=== PATIENT | female | born 2005 | race Hispanic/Latino ===

== ENCOUNTER 2024-06-20 03:01 | Emergency (ER) | payer OTHER ==
[2024-06-20] MEDS ORDERED: CEFTRIAXONE 1000 MG/VIAL ONE (03:19)
[2024-06-20] MEDS ORDERED: LIDOCAINE 1% MPF 2 ML AMPULE ONE (03:19)
[2024-06-20] MEDS ORDERED: ACETAMINOPHEN 500 MG TAB ONE (03:24)
[2024-06-20] MEDS ORDERED: ONDANSETRON 4 MG (ODT) TAB ONE (03:24)
[2024-06-20] MEDS ORDERED: KETOROLAC 30 MG/ML INJ ONE (03:24)
[2024-06-20 04:09] LABS: Specific Gravity 1.022 (1.005-1.030)
--- NOTE | 2024-06-20 04:21 | EDPHYS ---
Physician Documentation [facility] Name: Loida Wilks Age: 19 yrs Sex: Female : 2005 Arrival Date: 06/20/2024 Time: 03:01 Bed 5 Private MD: ED Physician Isaías Tineo HPI: 06/20 04:03 This 19 yrs old Female presents to ER via Ambulatory with complaints of Sore sp4 Throat, Headache, Nausea. 21:05 19-year-old female presents with complaint of sore throat nausea and headache. . 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 - Infectious Disease History:: Denies. - Social history:: Smoking status: Patient denies any tobacco usage or history of. Patient/guardian denies using alcohol, street drugs. - Family history:: not pertinent. ROS: 21:05 Constitutional: Negative for fever, chills, and weight loss, positive sore throat, sp4 positive headache, positive nausea 21:05 All other systems are negative, Exam: 21:05 Constitutional: This is a well developed, well nourished patient who is awake, alert, sp4 and in no acute distress. Head/Face: Normocephalic, atraumatic. Eyes: Pupils equal round and reactive to light, extra-ocular motions intact. Lids and lashes normal. Conjunctiva and sclera are not injected. Cornea within normal limits. Periorbital areas with no swelling, redness, or edema. ENT: Nares patent. No nasal discharge, no septal abnormalities noted. Tympanic membranes are normal and external auditory canals are clear. Oropharynx with no redness, swelling, or masses, exudates, or evidence of obstruction, uvula midline. Mucous membranes moist. Neck: Trachea midline, no thyromegaly or masses palpated, and no cervical lymphadenopathy. Supple, full range of motion without nuchal rigidity, or vertebral point tenderness. Chest/axilla: Normal chest wall appearance and motion. Nontender with no deformity. No lesions are appreciated. Cardiovascular: Regular rate and rhythm with a normal S1 and S2. No gallops, murmurs, or rubs. Normal PMI, no JVD. No pulse deficits. Respiratory: Lungs have equal breath sounds bilaterally, clear to auscultation and percussion. No rales, rhonchi or wheezes noted. No increased work of breathing, no retractions or nasal flaring. Abdomen/GI: Soft, with normal bowel sounds. No distension or tympany. No guarding or rebound. No evidence of tenderness throughout. Back: No spinal tenderness. No costovertebral tenderness. Skin: Warm, dry with normal turgor. Normal color with no rashes, no lesions, and no evidence of cellulitis. MS/ Extremity: Pulses equal, no cyanosis. Neurovascular intact. Full, normal range of motion. Neuro: Awake and alert, GCS 15, oriented to person, place, time, and situation. Cranial nerves II-XII grossly intact. Motor strength 5/5 in all extremities. Sensory grossly intact. Psych: Awake, alert, with orientation to person, place and time. Behavior, mood, and affect are within normal limits Vital Signs: 03:18 BP 142 / 98; Pulse 85; Resp 17 S; Temp 98.1(O); Pulse Ox 98% on R/A; Weight 86.18 kg lg3 (R); Height 5 ft. 6 in. (R); 04:27 BP 121 / 74; Pulse 78; Resp 17; Temp 98.2; Pulse Ox 100% ; Pain 2/10; bm8 03:18 Body Mass Index 30.67 (86.18 kg, 167.64 cm) lg3 04:27 Pain Scale: Adult bm8 [place] Coma Score: 03:35 Eye Response: spontaneous(4). Motor Response: obeys commands(6). Verbal Response: bm8 oriented(5). Total: 15. 04:27 Eye Response: spontaneous(4). Motor Response: obeys commands(6). Verbal Response: bm8 oriented(5). Total: 15. 21:05 Eye Response: spontaneous(4). Motor Response: obeys commands(6). Verbal Response: sp4 oriented(5). Total: 15. MDM: 04:03 Patient medically screened. sp4 21:06 Differential diagnosis: bronchitis, echovirus infection, gingivostomatitis, influenza, sp4 elvin's angina. Data reviewed: vital signs, nurses notes, old medical records. ED course: Patient has classic strep throat on exam. Will prescribe course of cephalexin. 06/20 03:19 Order name: Test, Urine; Complete Time: 04:20 sp4 Administered Medications: 03:35 Drug: Ketorolac IM 60 mg IM once Route: IM; Site: left gluteus; bm8 04:28 Follow up: Response: No adverse reaction bm8 03:35 Drug: Rocephin (cefTRIAXone) IM 1 grams IM once Route: IM; Site: right gluteus; bm8 04:28 Follow up: Response: No adverse reaction bm8 03:35 Drug: Ondansetron PO 4 mg PO once Route: PO; bm8 04:28 Follow up: Response: No adverse reaction bm8 03:35 Drug: Acetaminophen PO 1000 mg PO once Route: PO; bm8 04:28 Follow up: Response: No adverse reaction bm8 Disposition Summary: 06/20/24 04:21 Discharge Ordered Notes: Location: Home sp4 Problem: new sp4 Symptoms: have improved sp4 Condition: Stable sp4 Diagnosis - Streptococcal tonsillitis sp4 Followup: sp4 - With: Private Physician - When: 7 - 10 days - Reason: Recheck today's complaints Discharge Instructions: - Discharge Summary Sheet sp4 - Tonsillitis, [id number] sp4 Forms: - Patient Portal Instructions sp4 - Family Work Release bm8 Prescriptions: - Cephalexin 500 mg Oral Capsule - take 1 capsule ORAL route every 12 hours for 10 days; 20 capsule; Refills: 0, sp4 Product Selection Permitted - Ibuprofen 800 mg Oral Tablet - take 1 tablet ORAL route every 8 hours As needed take with food; 30 tablet; sp4 Refills: 0, Product Selection Permitted - ondansetron 8 mg Oral Tablet,disintegrating - take 1 tablet ORAL route every 8 hours PRN nausea; 30 tablet; Refills: 0, sp4 Product Selection Permitted Signatures: Dispatcher [employer] Tootie Wallis RN RN lg3 Isaías Tineo MD MD sp4 Aram Mcnair RN RN bm8
--- NOTE | 2024-06-20 04:21 | ER ---
Nurse's Notes [facility] Name: Loida Wilks Age: 19 yrs Sex: Female : 2005 Arrival Date: 06/20/2024 Time: 03:01 Bed 5 Private MD: Diagnosis: Streptococcal tonsillitis Presentation: 06/20 03:18 Chief complaint: Patient states: i think i have strep. new onset headache and lg3 intermittent nausea. Coronavirus screen: Client denies travel out of the [place] in the last 14 days. At this time, the client does not indicate any symptoms associated with coronavirus-19. Ebola Screen: No symptoms or risks identified at this time. Initial Sepsis Screen: Does the patient meet any 2 criteria? No. Patient's initial sepsis screen is negative. Does the patient have a suspected source of infection? No. Patient's initial sepsis screen is negative. Risk Assessment: Do you want to hurt yourself or someone else? Patient reports no desire to harm self or others. Onset of symptoms was June 17, 2024. 03:18 Method Of Arrival: Ambulatory lg3 03:18 Acuity: ENOC 4 lg3 Triage Assessment: 03:19 General: Appears in no apparent distress. comfortable, Behavior is calm, cooperative. lg3 Pain: Complains of pain in throat. EENT: Throat is reddened has enlarged tonsils bilaterally. Neuro: No deficits noted. Garcia Agitation-Sedation Scale (RASS): 0 - Alert and Calm Level of Consciousness is awake, alert, obeys commands, Oriented to person, place, time, situation. Cardiovascular: No deficits noted. Denies chest pain, shortness of breath, Capillary refill < 3 seconds Clubbing of nail beds is absent JVD is absent Patient's skin is warm and dry. Respiratory: No deficits noted. Airway is patent Respiratory effort is even, unlabored, Respiratory pattern is regular, symmetrical. GI: No deficits noted. No signs and/or symptoms were reported involving the gastrointestinal system. : No deficits noted. No signs and/or symptoms were reported regarding the genitourinary system. Derm: No deficits noted. No signs and/or symptoms reported regarding the dermatologic system. Skin is intact, is healthy with good turgor, Skin is dry, Skin is normal, Skin temperature is warm. Musculoskeletal: No deficits noted. No signs and/or symptoms reported regarding the musculoskeletal system. Circulation, motion, and sensation intact. Range of motion: intact in all extremities. 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 - Infectious Disease History:: Denies. - Social history:: Smoking status: Patient denies any tobacco usage or history of. Patient/guardian denies using alcohol, street drugs. - Family history:: not pertinent. Screenin:35 [facility] ED Fall Risk Assessment (Adult) History of falling in the last 3 months, bm8 including since admission No falls in past 3 months (0 pts) Confusion or Disorientation No (0 pts) Intoxicated or Sedated No (0 pts) Impaired Gait No (0 pts) Mobility Assist Device Used No (0 pt) Altered Elimination No (0 pt) Score/Fall Risk Level 0 - 2 = Low Risk Oriented to surroundings, Maintained a safe environment, Educated pt \T\ family on fall prevention, incl call for assistance when getting out of bed, Assessed \T\ reinforced patient's understanding of fall precautions, Hourly rounding (assess needs \T\ fall precautionary measures) done, Used ambulatory aids as needed (educated on \T\ assisted with), Used gait belt as appropriate. Abuse screen: Denies threats or abuse. Nutritional screening: No deficits noted. Tuberculosis screening: No symptoms or risk factors identified. Assessment: 03:35 General: Appears in no apparent distress. comfortable, Behavior is calm, cooperative, bm8 appropriate for age. Pain: Complains of pain in throat and head. Neuro: No deficits noted. Level of Consciousness is awake, alert, obeys commands, Oriented to person, place, time, situation, Appropriate for age Reports headache. Cardiovascular: Denies chest pain, Capillary refill < 3 seconds in bilateral fingers Patient's skin is warm and dry. Respiratory: No deficits noted. Airway is patent Respiratory effort is even, unlabored, Respiratory pattern is regular, symmetrical, Breath sounds are clear bilaterally. GI: No signs and/or symptoms were reported involving the gastrointestinal system. : No signs and/or symptoms were reported regarding the genitourinary system. EENT: Throat is reddened has patchy exudate has enlarged tonsils bilaterally with gag reflex present, Reports difficulty swallowing. Derm: No signs and/or symptoms reported regarding the dermatologic system. Musculoskeletal: No signs and/or symptoms reported regarding the musculoskeletal system. 04:27 Reassessment: Patient appears in no apparent distress at this time. Patient and/or bm8 family updated on plan of care and expected duration. Pain level reassessed. Patient is alert, oriented x 3, equal unlabored respirations, skin warm/dry/pink. Patient states feeling better. Vital Signs: 03:18 BP 142 / 98; Pulse 85; Resp 17 S; Temp 98.1(O); Pulse Ox 98% on R/A; Weight 86.18 kg lg3 (R); Height 5 ft. 6 in. (R); 04:27 BP 121 / 74; Pulse 78; Resp 17; Temp 98.2; Pulse Ox 100% ; Pain 2/10; bm8 03:18 Body Mass Index 30.67 (86.18 kg, 167.64 cm) lg3 04:27 Pain Scale: Adult bm8 [place] Coma Score: 03:35 Eye Response: spontaneous(4). Motor Response: obeys commands(6). Verbal Response: bm8 oriented(5). Total: 15. 04:27 Eye Response: spontaneous(4). Motor Response: obeys commands(6). Verbal Response: bm8 oriented(5). Total: 15. 21:05 Eye Response: spontaneous(4). Motor Response: obeys commands(6). Verbal Response: sp4 oriented(5). Total: 15. ED Course: 03:08 Patient arrived in ED. jj6 03:18 Isaías Tineo MD is Attending Physician. sp4 03:19 Triage completed. lg3 03:19 Arm band placed on right wrist. lg3 03:34 Aram Mcnair, ENEIDA is Primary Nurse. bm8 03:35 Patient has correct armband on for positive identification. Bed in low position. Call bm8 light in reach. Side rails up X 1. Adult w/ patient. Client placed on continuous cardiac and pulse oximetry monitoring. NIBP monitoring applied. Pulse ox on. NIBP on. Door closed. Noise minimized. Pillow given. Verbal reassurance given. 03:35 No provider procedures requiring assistance completed. Patient maintains SpO2 bm8 saturation greater than 95% on room air. 04:27 Provided Education on: post er care. bm8 04:27 Patient did not have IV access during this emergency room visit. bm8 Administered Medications: 03:35 Drug: Ketorolac IM 60 mg IM once Route: IM; Site: left gluteus; bm8 04:28 Follow up: Response: No adverse reaction bm8 03:35 Drug: Rocephin (cefTRIAXone) IM 1 grams IM once Route: IM; Site: right gluteus; bm8 04:28 Follow up: Response: No adverse reaction bm8 03:35 Drug: Ondansetron PO 4 mg PO once Route: PO; bm8 04:28 Follow up: Response: No adverse reaction bm8 03:35 Drug: Acetaminophen PO 1000 mg PO once Route: PO; bm8 04:28 Follow up: Response: No adverse reaction bm8 Medication: 03:35 VIS not applicable for this client. bm8 Outcome: 04:21 Discharge ordered by . shelly 04:27 Discharged to home ambulatory, with family, bm8 04:27 Condition: stable 04:27 Discharge instructions given to patient, family, Instructed on discharge instructions, follow up and referral plans. no drinking with medication, no driving heavy equipment, medication usage, safety practices, Demonstrated understanding of instructions, follow-up care, medications, Prescriptions given X 2, 04:32 Patient left the ED. bm8 Signatures: Tootie Adler RN RN lg3 Cherelle Henry jj6 Isaías Tineo MD MD sp4 Aram Mcnair RN RN bm8
[2024-06-20 05:09] VITALS: BP 121/74; TEMP 98.2; O2SAT 100
== END 2024-06-20 04:32 | disposition home or self-care (01) ==
LOC: ER 03:01
DX: J03.00 Acute streptococcal tonsillitis, unspecified (principal)
CPT/HCPCS: 81025; Q0162; J0696; 96372; 99284

== ENCOUNTER 2024-07-14 00:59 | Emergency (ER) | payer OTHER ==
--- NOTE | 2024-07-14 01:57 | ER ---
Nurse's Notes [facility] Name: Loida Wilks Age: 19 yrs Sex: Female : 2005 Arrival Date: 07/14/2024 Time: 00:59 Bed DX3 Private MD: Diagnosis: Acute tonsillitis, unspecified Presentation: 07/14 01:13 Chief complaint: Patient states: I WAS HERE BEFORE AND GOT DIAGNOSED WITH STREP, I GOT ha1 BETTER WITH THE ANTIBIOTICS THAT I WAS PRESCRIBED, BUT I FEEL THAT THE STREP NEVER WENT AWAY. SORE THROAT. 01:13 Coronavirus screen: Vaccine status: Patient reports being unvaccinated. Ebola Screen: ha1 No symptoms or risks identified at this time. Initial Sepsis Screen: Does the patient meet any 2 criteria? No. Patient's initial sepsis screen is negative. Initial Sepsis Screen: Does the patient have a suspected source of infection? No. Patient's initial sepsis screen is negative. Risk Assessment: Do you want to hurt yourself or someone else? Patient reports no desire to harm self or others. Onset of symptoms was July 14, 2024. 01:13 Method Of Arrival: Ambulatory ha1 01:13 Acuity: ENOC 4 ha1 Triage Assessment: 01:13 General: Appears comfortable, Behavior is calm, cooperative. Pain: Complains of pain in ha1 SORE THROAT Pain does not radiate. Pain currently is 5 out of 10 on a pain scale. Quality of pain is described as aching. 01:13 EENT: Throat is reddened has enlarged tonsils. Neuro: Level of Consciousness is awake, ha1 alert, obeys commands, Oriented to person, place, time, situation. Cardiovascular: Capillary refill < 3 seconds Patient's skin is warm and dry. Respiratory: Airway is patent Respiratory effort is even, unlabored, Respiratory pattern is regular, symmetrical. GI: Abdomen is round non-distended. 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 - Infectious Disease History:: Denies. - Social history:: Smoking status: Patient denies any tobacco usage or history of. Screenin:13 [facility] ED Fall Risk Assessment (Adult) History of falling in the last 3 months, ha1 including since admission No falls in past 3 months (0 pts) Confusion or Disorientation No (0 pts) Intoxicated or Sedated No (0 pts) Impaired Gait No (0 pts) Mobility Assist Device Used No (0 pt) Altered Elimination No (0 pt) Score/Fall Risk Level 0 - 2 = Low Risk Oriented to surroundings, Maintained a safe environment, Educated pt \T\ family on fall prevention, incl call for assistance when getting out of bed, Hourly rounding (assess needs \T\ fall precautionary measures) done. Abuse screen: Denies threats or abuse. Denies injuries from another. Nutritional screening: No deficits noted. Tuberculosis screening: No symptoms or risk factors identified. Assessment: 01:13 Respiratory: Airway is patent Respiratory effort is even, unlabored, Respiratory ha1 pattern is regular, symmetrical, Breath sounds are clear bilaterally. 02:44 Reassessment: Patient and/or family updated on plan of care and expected duration. Pain ha1 level reassessed. Patient is alert, oriented x 3, equal unlabored respirations, skin warm/dry/pink. Patient denies pain at this time. Patient states feeling better. Patient states symptoms have improved. Vital Signs: 01:13 BP 131 / 86; Pulse 86; Resp 17 S; Temp 98.2(T); Pulse Ox 99% on R/A; Weight 89.81 kg; ha1 Height 5 ft. 6 in. ; Pain 6/10; 02:30 BP 128 / 85; Pulse 82; Resp 17 S; Pulse Ox 99% on R/A; ha1 01:13 Body Mass Index 31.96 (89.81 kg, 167.64 cm) ha1 01:13 Pain Scale: Adult ha1 ED Course: 01:06 Patient arrived in ED. jj6 01:13 Denzel Lopez PA is PHCP. cp 01:13 Denzel Leblanc MD is Attending Physician. cp 01:13 Arm band placed on right wrist. ha1 01:13 Patient has correct armband on for positive identification. Bed in low position. Call ha1 light in reach. Side rails up X 1. 01:24 Shawanda Sheldon, ENEIDA is Primary Nurse. ha1 01:30 Triage completed. ha1 02:38 No provider procedures requiring assistance completed. Patient did not have IV access ha1 during this emergency room visit. 02:44 Provided Education on: MEDICATION ADMINISTRATION . ha1 Administered Medications: 02:25 Drug: Viscous Lidocaine Mucous Membrane Liquid (4 %) 5 ml Mucous Membrane once Route: ha1 Mucous Membrane; 02:38 Follow up: Response: No adverse reaction ha1 02:25 Drug: Clindamycin PO 300 mg PO once Route: PO; ha1 02:38 Follow up: Response: No adverse reaction ha1 Medication: 02:38 VIS not applicable for this client. ha1 Outcome: 01:56 Discharge ordered by . lokesh 02:38 Discharged to home ambulatory, ha1 02:38 Condition: stable 02:38 Discharge instructions given to patient, Instructed on discharge instructions, follow up and referral plans. medication usage, Demonstrated understanding of instructions, follow-up care, medications, Prescriptions given X 2, 02:45 Patient left the ED. ha1 Signatures: Denzel Lopez PA PA cp Jeffries, Jennifer jj6 Shawanda Sheldon RN RN ha1
--- NOTE | 2024-07-14 01:57 | EDPHYS ---
Physician Documentation [facility] Name: Loida Wilks Age: 19 yrs Sex: Female : 2005 Arrival Date: 07/14/2024 Time: 00:59 Bed DX3 Private MD: ED Physician Denzel Leblanc HPI: 07/14 01:55 This 19 yrs old Female presents to ER via Ambulatory with complaints of Sore cp Throat. 01:55 The patient presents with sore throat. The patient describes throat pain as constant. cp Onset: The symptoms/episode began/occurred yesterday. 01:55 Severity of symptoms: in the emergency department the symptoms are unchanged, despite cp home interventions. 01:55 Associated signs and symptoms: Pertinent negatives cough, diarrhea, dysphagia, earache, cp fever, flu-like symptoms, headache. 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 - Infectious Disease History:: Denies. - Social history:: Smoking status: Patient denies any tobacco usage or history of. ROS: 02:00 Eyes: Negative for injury, pain, redness, and discharge, cp 02:00 Constitutional: Negative for body aches, chills, fever, poor PO intake, 02:00 ENT: Positive for sore throat, Negative for drainage from ear(s), ear pain, difficulty swallowing, difficulty handling secretions, 02:00 Respiratory: Negative for cough, shortness of breath, wheezing, 02:00 Abdomen/GI: Negative for abdominal pain, vomiting, diarrhea, constipation, 02:00 Skin: Negative for cellulitis, rash, 02:00 Neuro: Negative for altered mental status, numbness, weakness, 02:00 All other systems are negative, Exam: 02:05 Constitutional: The patient appears in no acute distress, alert, awake, non-toxic, well cp developed, well nourished, 02:05 Head/Face: Normocephalic, atraumatic. cp 02:05 Eyes: Periorbital structures: appear normal, Conjunctiva: normal, no exudate, no injection, Sclera: no appreciated abnormality, Lids and lashes: appear normal, bilaterally, 02:05 ENT: External ear(s): are unremarkable, Ear canal(s): are normal, clear, TM's: bulging, is not appreciated, bilaterally, dullness, bilaterally, erythema, is not appreciated, bilaterally, Nose: is normal, Mouth: Lips: moist, Oral mucosa: moist, Posterior pharynx: Airway: no evidence of obstruction, patent, Tonsils: bilaterally enlarged, with erythema, no exudate, Uvula: midline, erythema, that is mild, Voice: is normal, 02:05 Neck: ROM/movement: is normal, is supple, no meningismus, no nuchal rigidity, 02:05 Chest/axilla: Inspection: normal, 02:05 Cardiovascular: Rate: normal, JVD: is not appreciated, 02:05 Respiratory: the patient does not display signs of respiratory distress, Respirations: normal, no use of accessory muscles, no retractions, labored breathing, is not present, Breath sounds: are clear throughout, no decreased breath sounds, no stridor, no wheezing, 02:05 Abdomen/GI: Exam negative for discomfort, distension, guarding, Inspection: abdomen appears normal, 02:05 Skin: no rash present. Vital Signs: 01:13 BP 131 / 86; Pulse 86; Resp 17 S; Temp 98.2(T); Pulse Ox 99% on R/A; Weight 89.81 kg; ha1 Height 5 ft. 6 in. ; Pain 6/10; 02:30 BP 128 / 85; Pulse 82; Resp 17 S; Pulse Ox 99% on R/A; ha1 01:13 Body Mass Index 31.96 (89.81 kg, 167.64 cm) ha1 01:13 Pain Scale: Adult ha1 MDM: 01:14 Medical Screening Exam initiated raisa 02:55 Data reviewed: vital signs, nurses notes, lab test result(s), and as a result, I will cp discharge patient. 02:55 Differential diagnosis: group A strep tonsillitis, mononucleosis, peritonsillar abscess cp tonsillitis, uvulitis. I considered the following discharge prescriptions or medication management in the emergency department Medications were administered in the Emergency Department. See MAR. Counseling: I had a detailed discussion with the patient and/or guardian regarding the historical points, exam findings, and any diagnostic results supporting the discharge/admit diagnosis, lab results, to return to the emergency department if symptoms worsen or persist or if there are any questions or concerns that arise at home. 07/14 01:46 Order name: Group A Streptococcus Rapid Sc [facility] 07/14 01:46 Order name: Throat Culture [facility] 07/14 02:17 Order name: Group A Streptococcus Rapid Sc [facility] 07/14 02:17 Order name: Throat Culture [facility] Administered Medications: 02:25 Drug: Viscous Lidocaine Mucous Membrane Liquid (4 %) 5 ml Mucous Membrane once Route: ha1 Mucous Membrane; 02:38 Follow up: Response: No adverse reaction ha1 02:25 Drug: Clindamycin PO 300 mg PO once Route: PO; ha1 02:38 Follow up: Response: No adverse reaction ha1 Disposition Summary: 07/14/24 01:56 Discharge Ordered Notes: Location: Home cp Problem: new cp Symptoms: have improved cp Condition: Stable cp Diagnosis - Acute tonsillitis, unspecified cp Followup: cp - With: Private Physician - When: 2 - 3 days - Reason: Worsening of condition Discharge Instructions: - Discharge Summary Sheet cp - Tonsillitis cp Forms: - Medication Reconciliation Form cp - Antibiotic Education cp - Prescription Opioid Use cp - Patient Portal Instructions cp - Leadership Thank You Letter cp Prescriptions: - Lidocaine Viscous - take 5 milliliter ORAL route every 4-6 hours As needed; 120 milliliter; cp Refills: 0, Product Selection Permitted - Clindamycin HCl 300 mg Oral Capsule - take 1 capsule ORAL route every 6 hours for 10 days; 40 capsule; Refills: 0, cp Product Selection Permitted - Ibuprofen 800 mg Oral Tablet - take 1 tablet ORAL route every 8 hours As needed take with food; 30 tablet; cp Refills: 0, Product Selection Permitted Signatures: Dispatcher [employer] [facility] Denzel Leblanc MD MD cha Page, Corey, PA PA cp Shawanda Sheldon RN RN ha1 Corrections: (The following items were deleted from the chart) 02:17 02:10 Group A Streptococcus Rapid Sc+[id number].LAB.BRZ ordered. [facility] 19:56 07/13 02:00 Constitutional: Negative for body aches, chills, fever, poor PO intake, cp cp 07/14 19:56 07/13 02:00 Eyes: Negative for injury, pain, redness, and discharge, cp cp 11/07/13 02:00 ENT: Positive for sore throat, Negative for drainage from ear(s), ear pain, cp difficulty swallowing, difficulty handling secretions, cp 07/14 02:00 Respiratory: Negative for cough, shortness of breath, wheezing, cp cp 07/14 02:00 Abdomen/GI: Negative for abdominal pain, vomiting, diarrhea, constipation, cp cp 07/14 02:00 Skin: Negative for cellulitis, rash, cp cp 07/14 02:00 Neuro: Negative for altered mental status, numbness, weakness, cp cp 07/14 02:00 All other systems are negative, cp cp
[2024-07-14] MEDS ORDERED: LIDOCAINE VISCOUS 2% 10ML ORAL SOLN ONE (02:32)
[2024-07-14 03:02] VITALS: BP 128/85; O2SAT 99
== END 2024-07-14 02:45 | disposition home or self-care (01) ==
LOC: ER 00:59
DX: J03.90 Acute tonsillitis, unspecified (principal)
CPT/HCPCS: 87070; 87081; 99283

== ENCOUNTER 2024-11-11 07:03 | Emergency (ER) | payer OTHER ==
[2024-11-11] MEDS ORDERED: FAMOTIDINE 20 MG/2 ML VIAL IV ONE (07:22)
[2024-11-11] MEDS ORDERED: ONDANSETRON 4 MG/2 ML VIAL ONE ×2 (07:22→08:30)
[2024-11-11] MEDS ORDERED: NA CHLORIDE 0.9% 1,000 ML ONE ×2 (07:23→10:14)
[2024-11-11 07:41] LABS: Absolute Eosinophils 0.1 K/uL (0-0.5); Absolute Lymphocytes (CBC) 1.4 K/uL (0.7-4.9); Absolute Monocytes 1.1 K/uL (0.1-1.3); Basophils % 0.2 % (0-1.3); Eosinophils % 0.7 % (0-4.4); Hematocrit 41.2 % (36.0-45.0); Hemoglobin 13.5 g/dL (12.0-15.0); Lymphocytes % 7.9 % (15.3-44.8); MCHC 32.8 g/dL (32.0-36.0); MCV 85.5 fL (80-100); MPV 7.3 fL (7.6-11.3); Monocytes % 6.1 % (3.3-12.3); Neutrophils % 85.1 % (41.7-73.7); Platelets 448 thou/uL (152-406); RBC Red Blood Cell Count 4.82 M/uL (3.86-4.86); Red Cell Distribution Width 13.7 % (12.1-15.2)
[2024-11-11 07:57] LABS: Albumin 3.7 g/dL (3.4-5.0); Albumin/Globulin Ratio 0.7 (1.1-1.8); Anion Gap 9.8 mEq/L (5.0-15.0); Bilirubin Total 0.4 mg/dL (0.2-1.0); Globulin 5.5 g/dL (2.3-3.5); Potassium 3.8 mEq/L (3.5-5.1); Protein, Total 9.2 g/dL (6.4-8.2)
[2024-11-11 08:38] LABS: Blood Morphology Comment NOTED (NOT SEEN); Differential Total Cells Count 100; Eosinophils 1 % (0-3); Lymphocytes 12 % (15-42); Monocytes 2 % (0-10); Platelet Estimate ADEQ; Segmented Neutrophils 85 % (40-80)
[2024-11-11 08:39] LABS: Stomatocytes 1+
[2024-11-11] MEDS ORDERED: PROMETHAZINE INJ 25 MG/ML AMP ONE ×2 (09:06→10:15)
--- NOTE | 2024-11-11 11:18 | RAD REPORT ---
EXAMINATION: CT ABDOMEN AND PELVIS WITH CONTRAST CLINICAL INDICATION: ABD PAIN TECHNIQUE: CT abdomen and pelvis was performed, after the administration of IV contrast, as per [facility] protocol. Axial, sagittal and coronal reconstructions were obtained. One or more of the following dose reduction techniques were used: Automated exposure control, adjustment of the mA and k V according to patient size, and iterative reconstruction. Unless otherwise specified, incidental findings do not require dedicated imaging follow-up. COMPARISON: No prior exam. FINDINGS: LOWER CHEST: The visualized lung bases are clear. LIVER: Normal in size and contour. No focal lesion. Grossly unremarkable gallbladder. SPLEEN: Normal size. No focal lesion. PANCREAS: No mass, ductal dilation, or goyo-pancreatic fluid. ADRENALS: Normal; no mass. KIDNEYS: Normal size and contour. No hydronephrosis. GASTROINTESTINAL TRACT: No evidence of free air, significant intra-abdominal free fluid, bowel obstru ction or abscess. APPENDIX: Normal appendix. LYMPH NODES: No lymphadenopathy. MUSCULOSKELETAL: No acute or suspicious osseous abnormality. ADDITIONAL FINDINGS: None. IMPRESSION: No acute or concerning abnormalities seen in the abdomen or pelvis.
--- NOTE | 2024-11-11 11:43 | EDPHYS ---
Physician Documentation [facility] Name: Loida Wilks Age: 19 yrs Sex: Female : 2005 Arrival Date: 11/11/2024 Time: 07:03 Bed 19 Private MD: ED Physician Jeffrey Queen HPI: 11/11 07:29 This 19 yrs old Female presents to ER via Ambulatory with complaints of ms3 Vomiting. 07:29 19-year-old female with no past medical history presents to the emergency department ms3 for vomiting 5 times last night. Patient states she was seen on Monday at the urgent care for a cough and sneezing. Patient notes her tonsils were also enlarged at that time. Patient had strep, COVID, flu test performed that were negative. Patient denies pain at this time. She denies any alleviating or inciting factors.. 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 - Infectious Disease History:: Denies. - Social history:: Smoking status: Patient denies any tobacco usage or history of. ROS: 07:29 Constitutional: Negative for fever, and chills. Cardiovascular: Negative for chest ms3 pain, and palpitations. Respiratory: Negative for shortness of breath, cough, wheezing, and pleuritic chest pain, 07:29 MS/Extremity: Negative for injury and deformity, Skin: Negative for injury, rash, and discoloration, 07:29 Abdomen/GI: Positive for nausea and vomiting, Negative for abdominal pain, diarrhea, Exam: 07:29 Constitutional: This is a well developed, well nourished patient who is awake, alert, ms3 and in no acute distress. 07:29 Respiratory: Lungs have equal breath sounds bilaterally, clear to auscultation and percussion. No rales, rhonchi or wheezes noted. No increased work of breathing, no retractions or nasal flaring. Abdomen/GI: Soft, non-tender, with normal bowel sounds. No distension or tympany. No guarding or rebound. No evidence of tenderness throughout. Skin: Warm, dry with normal turgor. Normal color with no rashes, no lesions, and no evidence of cellulitis. MS/ Extremity: Pulses equal, no cyanosis. Neurovascular intact. Full, normal range of motion. 07:29 Cardiovascular: Rate: tachycardic, Rhythm: regular, Pulses: no pulse deficits are appreciated, Heart sounds: normal, Edema: is not appreciated, Vital Signs: 07:19 BP 141 / 93; Pulse 130; Resp 16 S; Temp 98.4(O); Pulse Ox 99% on R/A; Weight 86.18 kg aa5 (R); Height 5 ft. 6 in. (R); 09:14 BP 140 / 88; Pulse 115; Resp 16; Pulse Ox 100% ; ll1 10:23 BP 127 / 82; Pulse 121; Resp 17; ll1 12:03 BP 129 / 83; Pulse 105; Resp 16; Pulse Ox 100% ; ll1 07:19 Body Mass Index 30.67 (86.18 kg, 167.64 cm) aa5 MDM: 07:28 Medical Screening Exam initiated ms3 07:29 Differential diagnosis: Nonspecific abd pain, viral gastroenteritis, gastroenteritis. ms3 13:09 Data reviewed: vital signs, nurses notes, lab test result(s), radiologic studies, and ms3 as a result, I will discharge patient. I considered the following discharge prescriptions or medication management in the emergency department Medications were administered in the Emergency Department. See MAR. Counseling: I had a detailed discussion with the patient and/or guardian regarding the historical points, exam findings, and any diagnostic results supporting the discharge/admit diagnosis, lab results, radiology results, the need for outpatient follow up, to return to the emergency department if symptoms worsen or persist or if there are any questions or concerns that arise at home. Special discussion: Based on the patient's Hx, exam, and Dx evaluation, there is no indication for emergent surgery or inpatient Tx. It is understood by the patient/guardian that if the Sx's persist or worsen they need to return immediately for re-evaluation. ED course: Discussed labs and imaging with patient. Patient to follow-up with primary care physician in 2 to 3 days. Patient understands and agrees with plan. All questions were answered. Return precautions discussed include worsening symptoms, or any other concerns. On reevaluation patient is improved, alert and oriented x 4, in no apparent distress, nontoxic-appearing, speaking full sentences.. 11/11 07:08 Order name: CBC with Diff; Complete Time: 08:48 ms3 11/11 07:08 Order name: CMP; Complete Time: 08:48 ms3 11/11 07:08 Order name: Lipase; Complete Time: 08:48 ms3 11/11 07:47 Order name: Manual Differential; Complete Time: 08:48 EDMS 11/11 09:33 Order name: Test, Serum; Complete Time: 10:43 ll1 11/11 08:49 Order name: CT Abd/Pelvis - IV Contrast Only; Complete Time: 11:31 ms3 11/11 07:08 Order name: IV Saline Lock; Complete Time: 07:20 ms3 11/11 07:08 Order name: Labs collected and sent; Complete Time: 07:20 ms3 Administered Medications: 07:27 Drug: Famotidine IVP 20 mg IVP once; dilute with 10 mL 0.9% NaCl; give over 2 minutes ll1 Route: IVP; Site: right antecubital; 09:31 Follow up: Response: No adverse reaction ll1 07:27 Drug: Ondansetron IVP 4 mg IVP once; over 2 minutes Route: IVP; Site: right antecubital;ll1 09:31 Follow up: Response: No adverse reaction ll1 07:27 Drug: NS 0.9% IV 1000 ml IV at 1 bolus Per protocol; to be given as a bolus over 60 ll1 minutes Route: IV; Rate: 1 bolus; Site: right antecubital; 08:34 Follow up: Response: No adverse reaction; IV Status: Completed infusion; IV Intake: ll1 1000ml 08:33 Drug: Ondansetron IVP 4 mg IVP once; over 2 minutes Route: IVP; Site: right antecubital;ll1 09:31 Follow up: Response: No adverse reaction ll1 09:14 Drug: Promethazine IM 12.5 mg IM once Route: IM; Site: left gluteus; ll1 10:25 Follow up: Response: No adverse reaction ll1 10:24 Drug: NS 0.9% IV 1000 ml IV at 1000 ml once; to be given as a bolus over 60 minutes ll1 Route: IV; Rate: 1000 ml; Site: right antecubital; 12:04 Follow up: Response: No adverse reaction; IV Status: Completed infusion; IV Intake: ll1 750ml 10:24 Drug: Promethazine IM 12.5 mg IM once Route: IM; Site: left gluteus; ll1 12:04 Follow up: Response: No adverse reaction; Nausea is decreased ll1 Disposition Summary: 11/11/24 11:42 Discharge Ordered Notes: Location: Home ms3 Condition: Stable ms3 Diagnosis - Nausea with vomiting, unspecified ms3 Followup: ms3 - With: Gurvinder Hudson DO - When: 2 - 3 days - Reason: Recheck today's complaints Discharge Instructions: - Discharge Summary Sheet ms3 - Nausea and Vomiting, Adult ms3 Forms: - Work release form ll1 - Medication Reconciliation Form ms3 - Antibiotic Education ms3 - Prescription Opioid Use ms3 - Patient Portal Instructions ms3 - Leadership Thank You Letter ms3 Prescriptions: - ondansetron 4 mg Oral Tablet,disintegrating - take 1 tablet ORAL route every 8 hours; 15 tablet; Refills: 0, Product ms3 Selection Permitted Signatures: Dispatcher [employer] Destini Luis, RN RN aa5 Niki Bryant RN RN ll1 Jeffrey Queen DO DO ms3 Corrections: (The following items were deleted from the chart) 09:51 08:49 Test, Urine+UC.LAB.BRZ ordered. EDMS EDMS
--- NOTE | 2024-11-11 11:43 | ER ---
Nurse's Notes [facility] Name: Loida Wilks Age: 19 yrs Sex: Female : 2005 Arrival Date: 11/11/2024 Time: 07:03 Bed 19 Private MD: Diagnosis: Nausea with vomiting, unspecified Presentation: 11/11 07:19 Chief complaint: Patient states: reports being seen at urgent care for flu-like aa5 symptoms, tested negative for flu and covid. Reports vomiting since last night. Coronavirus screen: vomiting. Ebola Screen: Patient denies travel to an Ebola-affected area in the 21 days before illness onset. Initial Sepsis Screen: Does the patient meet any 2 criteria? HR > 90 bpm. Does the patient have a suspected source of infection? No. Patient's initial sepsis screen is negative. Risk Assessment: Do you want to hurt yourself or someone else? Patient reports no desire to harm self or others. Onset of symptoms was November 11, 2024. 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 - Infectious Disease History:: Denies. - Social history:: Smoking status: Patient denies any tobacco usage or history of. Screenin:29 [facility] ED Fall Risk Assessment (Adult) History of falling in the last 3 months, ll1 including since admission No falls in past 3 months (0 pts) Confusion or Disorientation No (0 pts) Intoxicated or Sedated No (0 pts) Impaired Gait No (0 pts) Mobility Assist Device Used No (0 pt) Altered Elimination No (0 pt) Score/Fall Risk Level 0 - 2 = Low Risk Maintained a safe environment, Hourly rounding (assess needs \T\ fall precautionary measures) done. Abuse screen: Denies threats or abuse. Nutritional screening: No deficits noted. Tuberculosis screening: No symptoms or risk factors identified. Assessment: 07:30 General: Appears uncomfortable, Behavior is calm, cooperative, appropriate for age. ll1 Pain: Complains of pain in abdomen. GI: Abdomen is flat, Reports cramping, nausea, vomiting. 09:15 Reassessment: No changes from previously documented assessment. Patient and/or family ll1 updated on plan of care and expected duration. Pain level reassessed. Patient is alert, oriented x 3, equal unlabored respirations, skin warm/dry/pink. 09:49 Reassessment: No changes from previously documented assessment. Patient and/or family ll1 updated on plan of care and expected duration. Pain level reassessed. Patient is alert, oriented x 3, equal unlabored respirations, skin warm/dry/pink. 10:24 Reassessment: No changes from previously documented assessment. Patient and/or family ll1 updated on plan of care and expected duration. Pain level reassessed. Patient is alert, oriented x 3, equal unlabored respirations, skin warm/dry/pink. 12:03 Reassessment: No changes from previously documented assessment. Patient and/or family ll1 updated on plan of care and expected duration. Pain level reassessed. Patient is alert, oriented x 3, equal unlabored respirations, skin warm/dry/pink. Patient states feeling better. Vital Signs: 07:19 BP 141 / 93; Pulse 130; Resp 16 S; Temp 98.4(O); Pulse Ox 99% on R/A; Weight 86.18 kg aa5 (R); Height 5 ft. 6 in. (R); 09:14 BP 140 / 88; Pulse 115; Resp 16; Pulse Ox 100% ; ll1 10:23 BP 127 / 82; Pulse 121; Resp 17; ll1 12:03 BP 129 / 83; Pulse 105; Resp 16; Pulse Ox 100% ; ll1 07:19 Body Mass Index 30.67 (86.18 kg, 167.64 cm) aa5 ED Course: 07:05 Patient arrived in ED. mr 07:07 Jeffrey Queen DO is Attending Physician. ms3 07:10 Arm band placed on Patient placed in an exam room, on a stretcher. aa5 07:21 Triage completed. aa5 07:25 Initial lab(s) drawn, by me, sent to lab. Inserted saline lock: 22 gauge in right ll1 antecubital area, using aseptic technique. Blood collected. Flushed with 10 mL NS. 07:30 Patient has correct armband on for positive identification. Bed in low position. ll1 Provided Education on: ER procedures and process. Client placed on continuous cardiac and pulse oximetry monitoring. NIBP monitoring applied. 08:26 Niki Bryant, RN is Primary Nurse. ll1 09:47 Test, Serum Sent. rk3 11:01 CT Abd/Pelvis - IV Contrast Only In Process Unspecified. EDMS 11:42 Gurvinder Hudson, is Referral Physician. ms3 12:03 No provider procedures requiring assistance completed. IV discontinued, intact, ll1 bleeding controlled, No redness/swelling at site. Pressure dressing applied. Administered Medications: 07:27 Drug: Famotidine IVP 20 mg IVP once; dilute with 10 mL 0.9% NaCl; give over 2 minutes ll1 Route: IVP; Site: right antecubital; 09:31 Follow up: Response: No adverse reaction 1 07:27 Drug: Ondansetron IVP 4 mg IVP once; over 2 minutes Route: IVP; Site: right antecubital;ll1 09:31 Follow up: Response: No adverse reaction 1 07:27 Drug: NS 0.9% IV 1000 ml IV at 1 bolus Per protocol; to be given as a bolus over 60 ll1 minutes Route: IV; Rate: 1 bolus; Site: right antecubital; 08:34 Follow up: Response: No adverse reaction; IV Status: Completed infusion; IV Intake: ll1 1000ml 08:33 Drug: Ondansetron IVP 4 mg IVP once; over 2 minutes Route: IVP; Site: right antecubital;ll1 09:31 Follow up: Response: No adverse reaction 1 09:14 Drug: Promethazine IM 12.5 mg IM once Route: IM; Site: left gluteus; ll1 10:25 Follow up: Response: No adverse reaction 1 10:24 Drug: NS 0.9% IV 1000 ml IV at 1000 ml once; to be given as a bolus over 60 minutes ll1 Route: IV; Rate: 1000 ml; Site: right antecubital; 12:04 Follow up: Response: No adverse reaction; IV Status: Completed infusion; IV Intake: ll1 750ml 10:24 Drug: Promethazine IM 12.5 mg IM once Route: IM; Site: left gluteus; ll1 12:04 Follow up: Response: No adverse reaction; Nausea is decreased ll1 Medication: 10:29 VIS not applicable for this client. ll1 Intake: 08:34 IV: 1000ml; Total: 1000ml. ll1 12:04 IV: 750ml; Total: 1750ml. ll1 Outcome: 11:42 Discharge ordered by . ms3 12:04 Discharged to home via wheelchair, ll1 12:04 Condition: stable 12:04 Discharge instructions given to patient, family, Instructed on discharge instructions, follow up and referral plans. Demonstrated understanding of instructions, follow-up care, medications, Prescriptions given X 1, 12:05 Patient left the ED. ll1 Signatures: Dispatcher [employer] EDMS Annabel Bojorquez, Reg Reg mr Destini Marr, RN RN aa5 Niki Bryant RN RN ll1 Jeffrey Queen DO DO ms3 Steve Escalante rk3
[2024-11-11 12:33] VITALS: TEMP 98.4
[2024-11-11 12:34] VITALS: O2SAT 100
[2024-11-11 12:37] VITALS: BP 129/83
== END 2024-11-11 12:05 | disposition home or self-care (01) ==
LOC: ER 07:03
DX: R11.2 Nausea with vomiting, unspecified (principal)
CPT/HCPCS: 96361; 85025; 36415; 84703; 83690; 80053; 74177; 96375; 96372; 96374; 99284; Q9967; J2550 ×2; J2405 ×2; J7030 ×2